=== PATIENT | male | born 1975 | race Caucasian/White ===

== ENCOUNTER 2019-02-09 20:44 | Emergency (ER) | payer MEDICAID ==
[~2019-02-09] VITALS: Ht 182.9 cm; Wt 87.7 kg
--- NOTE | 2019-02-09 20:57 | NUR ---
PT PRESENTED WITH C/O CHEST PAIN THAT RADIATES DOWN LEFT ARM, SOB AND SWEATING FOR 2 DAYS, ALSO C/O SEVERE HEADACHE AND LEFT EAR PAIN, DENIES N/V. MONITORS APPLIED, SIDERAILS UP X2, CALL LIGHT WITHIN REACH
--- NOTE | 2019-02-09 20:59 | NUR ---
PT TO XRAY
[2019-02-09] MEDS ORDERED: ACETAMINOPHEN 500 MG TABLET ONE (21:15)
[2019-02-09 21:16] LABS: BASOPHILS # (AUTO) 0.03 x10^3/uL (0-0.1); BASOPHILS % (AUTO) 0 % (0-1); EOSINOPHILS # (AUTO) 0.11 x10^3/uL (0-0.4); EOSINOPHILS % (AUTO) 1 % (1-7); LYMPHOCYTES # (AUTO) 2.14 x10^3/uL (1-3.4); LYMPHOCYTES % (AUTO) 23 % (22-44); MD NO; MEAN CORPUSCULAR HEMOGLOBIN 29.4 pg (27.5-34.5); MEAN CORPUSCULAR HGB CONC 34.1 g/dL (33.2-36.2); MEAN CORPUSCULAR VOLUME 86.1 fL (81-97); MEAN PLATELET VOLUME 8.1 fL (7.4-10.4); MONOCYTES % (AUTO) 5 % (2-9); NEUTROPHILS # (AUTO) 6.59 x10^3/uL (1.8-6.8); NEUTROPHILS % (AUTO) 70 % (42-75); PLATELET COUNT 312 x10^3/uL (130-400); RED BLOOD COUNT 5.66 x10^6/uL (4.38-5.82); RED CELL DISTRIBUTION WIDTH 13.8 % (9.4-14.8)
--- NOTE | 2019-02-09 21:18 | NUR ---
PT MEDICATED PER MAR
[2019-02-09 21:28] LABS: ALANINE AMINOTRANSFERASE 40 U/L (12-78); ANION GAP 5 mmol/L (5-15); CHLORIDE 103 mmol/L (98-107)
[2019-02-09] MEDS ORDERED: ACETAMINOPHEN 500 MG TABLET PO ONE (21:30)
[2019-02-09 21:33] LABS: ALKALINE PHOSPHATASE 112 U/L (45-117); BILIRUBIN,TOTAL 0.4 mg/dL (0.2-1.0); TOTAL PROTEIN 7.7 g/dL (6.4-8.2); TROPONIN I < 0.015 ng/mL (0.000-0.045)
[2019-02-09 22:18] VITALS: BP 130/93
== END 2019-02-09 22:22 | disposition home or self-care (01) ==
LOC: ED 21:18
DX: R07.89 Other chest pain (principal); J44.9 Chronic obstructive pulmonary disease, unspecified; F17.210 Nicotine dependence, cigarettes, uncomplicated
CPT/HCPCS: 36415; 71046; 80053; 83880; 84484; 85025; 85379; 93005; 99284

== ENCOUNTER 2020-07-31 11:45 | Inpatient (IN) | payer MEDICAID ==
[~2020-07-31] VITALS: Ht 182.9 cm; Wt 78.9 kg
[2020-07-31] MEDS ORDERED: ASPIRIN 81 MG TABLET CHEW ONE (12:27)
[2020-07-31] MEDS ORDERED: MAALOX/HYOSCYAMINE/LIDOCAINE 45 ML BTL ONE (12:27)
[2020-07-31] MEDS ORDERED: SODIUM CHLORIDE FLUSH 10ML SYR IVF ONE (12:30)
[2020-07-31] MEDS ORDERED: MAALOX/HYOSCYAMINE/LIDOCAINE 45 ML BTL PO ONE (12:30)
[2020-07-31] MEDS ORDERED: SODIUM CHLORIDE 0.9% 1,000ML IVBOLUS ONE (12:30)
[2020-07-31] MEDS ORDERED: ASPIRIN 81 MG TABLET CHEW PO ONE (12:30)
[2020-07-31 12:52] LABS: BASOPHILS % (AUTO) 0 % (0-1); EOSINOPHILS % (AUTO) 0 % (1-7); LYMPHOCYTES % (AUTO) 18 % (22-44); MEAN CORPUSCULAR HEMOGLOBIN 28.7 pg (27.5-34.5); MEAN CORPUSCULAR HGB CONC 32.4 g/dL (33.2-36.2); MEAN PLATELET VOLUME 9.6 fL (7.4-10.4); MONOCYTES % (AUTO) 4 % (2-9); NEUTROPHILS % (AUTO) 77 % (42-75); PLATELET COUNT 353 x10^3/uL (130-400); RED BLOOD COUNT 5.59 x10^6/uL (4.38-5.82); RED CELL DISTRIBUTION WIDTH 14.5 % (9.4-14.8)
[2020-07-31 13:01] LABS: ALANINE AMINOTRANSFERASE 116 U/L (12-78); ALBUMIN 3.3 g/dL (3.4-5.0); ANION GAP 4 mmol/L (5-15); CALCIUM 9.1 mg/dL (8.5-10.1); CHLORIDE 105 mmol/L (98-107)
[2020-07-31 13:06] LABS: ALKALINE PHOSPHATASE 187 U/L (45-117); BILIRUBIN,TOTAL 1.2 mg/dL (0.2-1.0); TOTAL PROTEIN 6.3 g/dL (6.4-8.2); TROPONIN I 0.026 ng/mL (0.000-0.045)
[2020-07-31 14:01] LABS: MD SCAN
[2020-07-31] MEDS ORDERED: FUROSEMIDE 40 MG TABLET PO SCH (14:34)
[2020-07-31] MEDS ORDERED: FUROSEMIDE 40 MG TABLET ONE (15:00)
--- NOTE | 2020-07-31 15:05 | NUR ---
Pt resting in bedm, pt vss, pt medicated per emar
--- NOTE | 2020-07-31 15:50 | NUR ---
pt resting in bedm, pt a/o x4 and in no distressm, vss. pt m,edicated per emar
[2020-07-31] MEDS ORDERED: hydrALAzine 20 MG/ML, 1ML IVPush PRN (16:30)
[2020-07-31] MEDS ORDERED: DOCUSATE 100 MG CAPSULE PO PRN (16:30)
[2020-07-31] MEDS ORDERED: ONDANSETRON ODT 4 MG PO PRN (16:30)
[2020-07-31] MEDS ORDERED: ONDANSETRON 2MG/ML, 2ML IVPush PRN (16:30)
[2020-07-31] MEDS ORDERED: CEFTRIAXONE PMX 2GM/50ML 50 ML IVPB SCH (16:30)
[2020-07-31] MEDS ORDERED: BISACODYL 10 MG SUPP PR PRN (16:30)
[2020-07-31] MEDS ORDERED: AZITHROMYCIN 500 MG in SODIUM CHLORIDE 0.9% 250 ML IV SCH (16:30)
[2020-07-31] MEDS ORDERED: PROMETHAZINE 25 MG/ML, 1ML IM PRN (16:30)
[2020-07-31] MEDS ORDERED: NITROGLYCERIN 0.4 MG BOTTLE (25 TABS) SL PRN (16:30)
[2020-07-31] MEDS ORDERED: POLYETHYLENE GLYCOL 17 GM PACKET PO PRN (16:30)
[2020-07-31] MEDS ORDERED: LABETALOL 5MG/ML, 20ML IVPush PRN (16:30)
[2020-07-31] MEDS ORDERED: OXYcodone IR 5MG TABLET PO PRN (16:30)
[2020-07-31] MEDS ORDERED: NITROGLYCERIN SINGLE TAB 0.4 MG SL ONE (16:31)
[2020-07-31] MEDS ORDERED: FUROSEMIDE 40 MG/4 ML ONE (16:31)
[2020-07-31] MEDS ORDERED: ONDANSETRON 2MG/ML, 2ML ONE (16:32)
[2020-07-31] MEDS ORDERED: CEFTRIAXONE PMX 2GM/50ML 50 ML ONE (16:32)
[2020-07-31] MEDS ORDERED: HEPARIN 5,000 UNITS/ML, 1ML ONE (16:32)
[2020-07-31] MEDS ORDERED: MORPHINE SULFATE 4 MG/ML, 1ML ONE ×2 (16:32→17:42)
[2020-07-31 16:33] LABS: FREE T4 (FREE THYROXINE) 1.06 ng/dL (0.76-1.46)
[2020-07-31] MEDS: HEPARIN 5,000 UNITS/ML, 1ML SQ SCH (16:41)
[2020-07-31] MEDS: FUROSEMIDE 20 MG/2 ML IV SCH (16:41)
[2020-07-31] MEDS: morphine SULFATE 10 MG/ML, 1ML IVPush PRN ×3 (16:42→18:02)
--- NOTE | 2020-07-31 16:45 | NUR ---
pt c/o 06/18 chest pain pt medicated per emar
--- NOTE | 2020-07-31 16:54 | NUR ---
PT CHEST PAIN WENT FROM 9/10 TO 5/10 WITH 1X NITRO AND 5/10 TO 0/10 WITH 3MG MS. PT CURRENTLY PAIN FREE
--- NOTE | 2020-07-31 17:04 | NUR ---
PT DENIED HOME MED TO RN
[2020-07-31] MEDS ORDERED: NICOTINE 14MG/24 HR PATCH.TD24 ONE (17:08)
[2020-07-31] MEDS: NICOTINE 14MG/24 HR PATCH.TD24 TD SCH (17:11)
--- NOTE | 2020-07-31 17:14 | NUR ---
NICOTIN PATCH PLACED ON PT L SHOULDER
--- NOTE | 2020-07-31 17:49 | NUR ---
pt in 07/18 abd pain after ultra sound. pt m,edicated per emar
--- NOTE | 2020-07-31 17:53 | NUR ---
PT PETER WANTED CALL WHEN PT GOES UP TO FLOOR AT [phone]
[2020-07-31 19:01] LABS: TROPONIN I 0.028 ng/mL (0.000-0.045)
[2020-07-31 20:01] VITALS: BP 116/83
[2020-07-31 22:59] LABS: TROPONIN I 0.023 ng/mL (0.000-0.045)
[2020-08-01 01:32] LABS: BASOPHILS % (AUTO) 0 % (0-1); EOSINOPHILS % (AUTO) 0 % (1-7); LYMPHOCYTES % (AUTO) 12 % (22-44); MEAN CORPUSCULAR HEMOGLOBIN 28.6 pg (27.5-34.5); MEAN CORPUSCULAR HGB CONC 32.2 g/dL (33.2-36.2); MEAN PLATELET VOLUME 9.9 fL (7.4-10.4); MONOCYTES % (AUTO) 5 % (2-9); NEUTROPHILS % (AUTO) 82 % (42-75); PLATELET COUNT 333 x10^3/uL (130-400); RED BLOOD COUNT 5.52 x10^6/uL (4.38-5.82); RED CELL DISTRIBUTION WIDTH 14.2 % (9.4-14.8)
[2020-08-01 01:33] LABS: ALANINE AMINOTRANSFERASE 90 U/L (12-78); ALBUMIN 2.8 g/dL (3.4-5.0); ANION GAP 6 mmol/L (5-15); CALCIUM 8.1 mg/dL (8.5-10.1); CHLORIDE 106 mmol/L (98-107); CHOLESTEROL, TOTAL 187 mg/dL (140-239); CREATININE 0.92 mg/dL (0.7-1.3)
[2020-08-01 01:35] LABS: ALKALINE PHOSPHATASE 151 U/L (45-117); BILIRUBIN,TOTAL 0.9 mg/dL (0.2-1.0); CHOL/HDL RATIO 5.8; HDL CHOL % 17 % (26-37); HDL CHOLESTEROL (DIRECT) 32 mg/dL (40-60); LDL CHOLESTEROL,CALCULATED 131 mg/dL (54-169); LDL/HDL RATIO 4.1 (0.5-3.0); TOTAL PROTEIN 5.7 g/dL (6.4-8.2); TRIGLYCERIDES 119 mg/dL (50-200); VLDL CHOLESTEROL 24 mg/dL (0-25)
[2020-08-01 01:38] LABS: TROPONIN I 0.021 ng/mL (0.000-0.045)
[2020-08-01 02:00] LABS: MD SCAN
[2020-08-01 02:19] VITALS: BP 137/98
[2020-08-01] MEDS: HEPARIN 5,000 UNITS/ML, 1ML SQ SCH ×2 (02:19→08:30)
[2020-08-01 07:08] VITALS: BP 133/91
[2020-08-01] MEDS: ASPIRIN 325 MG TABLET EC PO SCH (08:29)
[2020-08-01] MEDS: FUROSEMIDE 20 MG/2 ML IV SCH ×2 (08:30→18:24)
[2020-08-01] MEDS ORDERED: OMNIPAQUE 350 MG/ML, 75ML BOTTLE ONE (09:36)
[2020-08-01 14:20] VITALS: BP 120/86
[2020-08-01] MEDS: FLUTICASONE/VILANTEROL 100-25MCG/INH INH SCH (14:30)
[2020-08-01] MEDS ORDERED: HEPARIN 5,000 UNITS/ML, 1ML IV ONE (16:00)
[2020-08-01] MEDS ORDERED: HEPARIN 25,000 UNITS/250ML PMX 250 ML IV PRN (16:00)
[2020-08-01] MEDS: NICOTINE 14MG/24 HR PATCH.TD24 TD SCH (17:00)
[2020-08-01] MEDS: CARVEDILOL 3.125 MG TABLET PO SCH (18:24)
[2020-08-01 20:33] VITALS: BP 124/95
[2020-08-02] MEDS: HEPARIN 5,000 UNITS/ML, 1ML IV PRN ×2 (00:48→08:12)
[2020-08-02 00:59] VITALS: BP 121/91
[2020-08-02] MEDS: ASPIRIN 325 MG TABLET EC PO SCH (06:35)
[2020-08-02] MEDS: CARVEDILOL 3.125 MG TABLET PO SCH (06:35)
[2020-08-02 07:23] VITALS: BP 143/96
[2020-08-02] MEDS: FUROSEMIDE 20 MG/2 ML IV SCH (08:13)
[2020-08-02] MEDS: FLUTICASONE/VILANTEROL 100-25MCG/INH INH SCH (09:00)
[2020-08-02] MEDS ORDERED: LISINOPRIL 5 MG TABLET PO SCH (09:00)
[2020-08-02] MEDS ORDERED: SPIRONOLACTONE 25 MG TABLET PO SCH (09:00)
[2020-08-02 12:18] VITALS: BP 126/86
== END 2020-08-02 15:02 | disposition left against medical advice (07) | DRG 291 ==
LOC: ED 12:30 → EDIP 16:17 → 5SO 19:57
PROVIDERS: ADMIT Internal Medicine; ATTEND Internal Medicine
DX: I50.43 Acute on chronic combined systolic (congestive) and diastolic (congestive) heart failure (principal); J96.01 Acute respiratory failure with hypoxia; J15.9 Unspecified bacterial pneumonia; J91.8 Pleural effusion in other conditions classified elsewhere; J44.0 Chronic obstructive pulmonary disease with (acute) lower respiratory infection; F17.210 Nicotine dependence, cigarettes, uncomplicated; F12.90 Cannabis use, unspecified, uncomplicated; K76.1 Chronic passive congestion of liver; Z53.29 Procedure and treatment not carried out because of patient's decision for other reasons; I25.10 Atherosclerotic heart disease of native coronary artery without angina pectoris; Z71.6 Tobacco abuse counseling
CPT/HCPCS: 36415; 71045; 71260; 76700; 80053; 80061; 83036; 83605; 83690; 83735; 83880; 84439; 84443; 84484; 85025; 85520; 93005; 93306; 94640; 96374; 96375; 99285; G0378; J0456; J0696; J1644; J2405; Q9967; J1940; J2270; J7030; J7050

== ENCOUNTER 2020-08-06 08:00 | Inpatient (IN) | payer MEDICAID ==
[~2020-08-06] VITALS: Ht 182.9 cm; Wt 79.7 kg
[2020-08-06] MEDS ORDERED: MAALOX/HYOSCYAMINE/LIDOCAINE 45 ML BTL PO ONE (08:30)
[2020-08-06] MEDS ORDERED: FAMOTIDINE 20 MG/2 ML IVPush ONE (08:30)
[2020-08-06] MEDS ORDERED: SODIUM CHLORIDE FLUSH 10ML SYR IVF ONE (08:30)
[2020-08-06] MEDS ORDERED: ONDANSETRON 2MG/ML, 2ML IVPush ONE (08:30)
[2020-08-06] MEDS ORDERED: FAMOTIDINE 20 MG/2 ML ONE (08:36)
[2020-08-06] MEDS ORDERED: ONDANSETRON 2MG/ML, 2ML ONE (08:36)
[2020-08-06] MEDS ORDERED: MAALOX/HYOSCYAMINE/LIDOCAINE 45 ML BTL ONE (08:36)
[2020-08-06] MEDS ORDERED: SODIUM CHLORIDE 0.9% 1,000ML IVBOLUS ONE (09:00)
[2020-08-06] MEDS ORDERED: PIPERACILLIN/TAZO/PMX 3.375GM 50 ML IVPB ONE (09:00)
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
[2020-08-06 09:01] LABS: BASOPHILS % (AUTO) 1 % (0-1); EOSINOPHILS % (AUTO) 0 % (1-7); LYMPHOCYTES % (AUTO) 19 % (22-44); MEAN CORPUSCULAR HEMOGLOBIN 29.2 pg (27.5-34.5); MEAN CORPUSCULAR HGB CONC 32.8 g/dL (33.2-36.2); MEAN PLATELET VOLUME 8.8 fL (7.4-10.4); MONOCYTES % (AUTO) 5 % (2-9); NEUTROPHILS % (AUTO) 76 % (42-75); PLATELET COUNT 350 x10^3/uL (130-400); RED BLOOD COUNT 5.07 x10^6/uL (4.38-5.82); RED CELL DISTRIBUTION WIDTH 14.5 % (9.4-14.8)
[2020-08-06 09:06] LABS: ALANINE AMINOTRANSFERASE 192 U/L (12-78); ALBUMIN 3.5 g/dL (3.4-5.0); ANION GAP 3 mmol/L (5-15); CALCIUM 8.9 mg/dL (8.5-10.1); CHLORIDE 108 mmol/L (98-107); CREATININE 1.05 mg/dL (0.7-1.3); MD NO
[2020-08-06 09:10] LABS: ALKALINE PHOSPHATASE 176 U/L (45-117); BILIRUBIN,TOTAL 0.8 mg/dL (0.2-1.0); TROPONIN I 0.132 ng/mL (0.000-0.045)
[2020-08-06] MEDS ORDERED: PIPERACILLIN/TAZO/PMX 3.375GM 50 ML ONE (09:12)
--- NOTE | 2020-08-06 09:16 | NUR ---
BLOOD CULTURES DRAWN PRIOR TO ADMIN OF ABX
[2020-08-06] MEDS ORDERED: ASPIRIN 81 MG TABLET CHEW ONE (09:20)
[2020-08-06] MEDS ORDERED: FUROSEMIDE 20 MG/2 ML ONE (09:20)
--- NOTE | 2020-08-06 09:25 | NUR ---
PT TO CT
[2020-08-06] MEDS ORDERED: ASPIRIN 81 MG TABLET CHEW PO ONE (09:30)
[2020-08-06] MEDS ORDERED: FUROSEMIDE 40 MG/4 ML IV ONE (09:30)
[2020-08-06] MEDS ORDERED: OMNIPAQUE 350 MG/ML, 100ML BOTTLE ONE (09:48)
--- NOTE | 2020-08-06 11:07 | NUR ---
pt voided 1200 ml, clear yellow. poc to be admitted
[2020-08-06] MEDS ORDERED: ENALAPRILAT 1.25 MG/ML, 2ML IVPush PRN (11:30)
[2020-08-06] MEDS ORDERED: ONDANSETRON 2MG/ML, 2ML IVPush PRN (11:30)
[2020-08-06] MEDS ORDERED: ACETAMINOPHEN 325 MG TABLET PO PRN (11:30)
[2020-08-06] MEDS ORDERED: ONDANSETRON ODT 4 MG PO PRN (11:30)
--- NOTE | 2020-08-06 11:32 | NUR ---
GIVEN WATER. CALL LIGHT IN REACH. PT AWARE OF POC
--- NOTE | 2020-08-06 11:49 | NUR ---
REPORT TO LAKESHA
[2020-08-06 12:12] VITALS: BP 122/82
[2020-08-06] MEDS: CEFTRIAXONE PMX 2GM/50ML 50 ML IVPB SCH (15:17)
[2020-08-06] MEDS: APIXABAN 5 MG TABLET PO SCH ×2 (15:18→21:56)
[2020-08-06 21:53] VITALS: BP 118/86
[2020-08-06] MEDS: METOPROLOL TARTRATE 25 MG TAB PO SCH (21:55)
[2020-08-06] MEDS: LACTULOSE 10 GM/15 ML UDC PO SCH (21:56)
[2020-08-07 00:32] LABS: TROPONIN I 0.123 ng/mL (0.000-0.045)
[2020-08-07 01:12] VITALS: BP 121/92
[2020-08-07 04:46] LABS: BASOPHILS % (AUTO) 1 % (0-1); EOSINOPHILS % (AUTO) 1 % (1-7); LYMPHOCYTES % (AUTO) 26 % (22-44); MEAN CORPUSCULAR HEMOGLOBIN 28.6 pg (27.5-34.5); MEAN CORPUSCULAR HGB CONC 32.2 g/dL (33.2-36.2); MEAN PLATELET VOLUME 8.9 fL (7.4-10.4); MONOCYTES % (AUTO) 7 % (2-9); NEUTROPHILS % (AUTO) 66 % (42-75); PLATELET COUNT 384 x10^3/uL (130-400); RED BLOOD COUNT 5.41 x10^6/uL (4.38-5.82); RED CELL DISTRIBUTION WIDTH 14.4 % (9.4-14.8)
[2020-08-07 04:54] LABS: ANION GAP 4 mmol/L (5-15); CALCIUM 8.6 mg/dL (8.5-10.1); CHLORIDE 105 mmol/L (98-107); CREATININE 1.05 mg/dL (0.7-1.3)
[2020-08-07] MEDS: METOPROLOL TARTRATE 25 MG TAB PO SCH ×2 (05:11→18:08)
[2020-08-07 05:55] LABS: MD SCAN
[2020-08-07 08:00] VITALS: BP 124/91
[2020-08-07] MEDS: LACTULOSE 10 GM/15 ML UDC PO SCH ×2 (09:00→20:50)
[2020-08-07] MEDS: FUROSEMIDE 20 MG/2 ML IV SCH ×2 (09:07→18:08)
[2020-08-07] MEDS: APIXABAN 5 MG TABLET PO SCH ×2 (09:07→20:54)
[2020-08-07] MEDS: LISINOPRIL 5 MG TABLET PO SCH (09:07)
[2020-08-07] MEDS: CEFTRIAXONE PMX 2GM/50ML 50 ML IVPB SCH (13:49)
[2020-08-07 16:00] VITALS: BP 130/95
[2020-08-07] MEDS ORDERED: LORazepam 0.5MG TABLET ONE (20:49)
[2020-08-07] MEDS: LORazepam 0.5MG TABLET PO PRN (20:54)
[2020-08-07 20:55] VITALS: BP 127/91
[2020-08-08 03:59] LABS: BASOPHILS % (AUTO) 1 % (0-1); EOSINOPHILS % (AUTO) 1 % (1-7); LYMPHOCYTES % (AUTO) 27 % (22-44); MEAN CORPUSCULAR HEMOGLOBIN 29.3 pg (27.5-34.5); MEAN CORPUSCULAR HGB CONC 33.4 g/dL (33.2-36.2); MEAN PLATELET VOLUME 9.1 fL (7.4-10.4); MONOCYTES % (AUTO) 6 % (2-9); NEUTROPHILS % (AUTO) 65 % (42-75); PLATELET COUNT 379 x10^3/uL (130-400); RED BLOOD COUNT 5.62 x10^6/uL (4.38-5.82); RED CELL DISTRIBUTION WIDTH 14.5 % (9.4-14.8)
[2020-08-08 04:00] VITALS: BP 131/85
[2020-08-08 04:02] LABS: ANION GAP 7 mmol/L (5-15); CALCIUM 8.9 mg/dL (8.5-10.1); CHLORIDE 102 mmol/L (98-107); CREATININE 0.95 mg/dL (0.7-1.3)
[2020-08-08] MEDS: LORazepam 0.5MG TABLET PO PRN (04:07)
[2020-08-08 05:50] LABS: MD SCAN
[2020-08-08] MEDS: METOPROLOL TARTRATE 25 MG TAB PO SCH (06:10)
[2020-08-08] MEDS: LACTULOSE 10 GM/15 ML UDC PO SCH (07:42)
[2020-08-08 08:00] VITALS: BP 121/86
[2020-08-08] MEDS: APIXABAN 5 MG TABLET PO SCH (09:14)
[2020-08-08] MEDS: LISINOPRIL 5 MG TABLET PO SCH (09:14)
[2020-08-08] MEDS: FUROSEMIDE 20 MG/2 ML IV SCH (09:14)
[2020-08-08 09:52] LABS: ANION GAP 7 mmol/L (5-15); CALCIUM 9.2 mg/dL (8.5-10.1); CHLORIDE 102 mmol/L (98-107)
[2020-08-08 10:00] LABS: CREATININE 1.21 mg/dL (0.7-1.3)
[2020-08-08] MEDS ORDERED: METO25TA35 PO (10:28)
[2020-08-08] MEDS ORDERED: FURO-93 PO (10:28)
[2020-08-08] MEDS ORDERED: APIX5TAB PO (10:28)
[2020-08-13] MEDS ORDERED: APIXABAN 5 MG TABLET PO SCH (09:00)
== END 2020-08-08 11:23 | disposition home or self-care (01) | DRG 291 ==
LOC: ED 08:19 → SUATTDRO 10:59 → 5SO 12:19 → ICU 18:39
PROVIDERS: ADMIT Hospitalist; ATTEND Internal Medicine
DX: I11.0 Hypertensive heart disease with heart failure (principal); J18.9 Pneumonia, unspecified organism; J44.0 Chronic obstructive pulmonary disease with (acute) lower respiratory infection; F15.20 Other stimulant dependence, uncomplicated; E87.5 Hyperkalemia; I50.23 Acute on chronic systolic (congestive) heart failure; F17.210 Nicotine dependence, cigarettes, uncomplicated; F41.0 Panic disorder [episodic paroxysmal anxiety]; I34.0 Nonrheumatic mitral (valve) insufficiency; I51.3 Intracardiac thrombosis, not elsewhere classified; R19.7 Diarrhea, unspecified; K76.1 Chronic passive congestion of liver; Z20.828 Contact with and (suspected) exposure to other viral communicable diseases; Z59.0 Homelessness; Z91.19 Patient's noncompliance with other medical treatment and regimen
CPT/HCPCS: 36415; 71045; 74177; 80048; 80053; 83605; 83615; 83690; 83880; 84132; 84145; 84484; 85025; 85379; 86140; 87040; 87081; 87635; 93005; 96361; 96374; 96375; 99285; G0378; J0696; J1940; J2405; J2543; Q9967; J7030

== ENCOUNTER 2020-11-16 03:25 | Emergency (ER) | payer MEDICAID ==
[~2020-11-16] VITALS: Ht 185.4 cm; Wt 98.0 kg
[~2020-11-16 03:25] MED LIST: APIX5TAB PO; FURO-93 PO; METO25TA35 PO
[2020-11-16 03:51] LABS: BASOPHILS % (AUTO) 1 % (0-1); EOSINOPHILS % (AUTO) 1 % (1-7); LYMPHOCYTES % (AUTO) 22 % (22-44); MEAN CORPUSCULAR HEMOGLOBIN 28.2 pg (27.5-34.5); MEAN CORPUSCULAR HGB CONC 32.6 g/dL (33.2-36.2); MEAN PLATELET VOLUME 8.2 fL (7.4-10.4); MONOCYTES % (AUTO) 7 % (2-9); NEUTROPHILS % (AUTO) 70 % (42-75); PLATELET COUNT 399 x10^3/uL (130-400); RED BLOOD COUNT 4.76 x10^6/uL (4.38-5.82); RED CELL DISTRIBUTION WIDTH 15.8 % (9.4-14.8)
[2020-11-16 04:00] LABS: ALBUMIN 3.1 g/dL (3.4-5.0); ANION GAP 5 mmol/L (5-15); CALCIUM 8.4 mg/dL (8.5-10.1); CHLORIDE 104 mmol/L (98-107)
[2020-11-16] MEDS ORDERED: SODIUM CHLORIDE FLUSH 10ML SYR IVF ONE (04:00)
[2020-11-16] MEDS ORDERED: SODIUM CHLORIDE 0.9% 1,000ML IVBOLUS ONE (04:00)
--- NOTE | 2020-11-16 04:02 | NUR ---
Pt states having increased swelling in scrotum and LE. Pt states being constipated today. Pt c/o abd pain. Pt on monitor, IV placed. Will monitor.
[2020-11-16 04:03] LABS: MD NO
[2020-11-16 04:09] LABS: ALANINE AMINOTRANSFERASE 421 U/L (12-78); ALKALINE PHOSPHATASE 266 U/L (45-117); BILIRUBIN,TOTAL 0.7 mg/dL (0.2-1.0); CREATININE 1.24 mg/dL (0.7-1.3); TOTAL PROTEIN 7.7 g/dL (6.4-8.2)
--- NOTE | 2020-11-16 04:52 | NUR ---
PO fluids recruitment and outreach assistant per physician. Pt A&O, states having pain. Physician aware.
[2020-11-16] MEDS ORDERED: ONDANSETRON ODT 4 MG PO ONE (05:00)
[2020-11-16] MEDS ORDERED: DICYCLOMINE 20 MG TABLET ONE (05:00)
[2020-11-16] MEDS ORDERED: ONDANSETRON ODT 4 MG ONE (05:00)
[2020-11-16] MEDS ORDERED: DICYCLOMINE 20 MG TABLET PO ONE (05:00)
[2020-11-16 06:06] VITALS: BP 114/65
--- NOTE | 2020-11-16 06:08 | NUR ---
Pt states feeling much better. Pt iv dc'd intact. Pt home with written and verbal instructions and state understanding. Pt rx reviewed with patient and states understanding. Pt ambulatory out of ED and states he is walking home.
== END 2020-11-16 06:11 | disposition home or self-care (01) ==
LOC: ED 06:06
DX: R10.84 Generalized abdominal pain (principal); K59.00 Constipation, unspecified; F11.10 Opioid abuse, uncomplicated; F15.129 Other stimulant abuse with intoxication, unspecified; R11.0 Nausea; J44.9 Chronic obstructive pulmonary disease, unspecified; I11.0 Hypertensive heart disease with heart failure; I50.9 Heart failure, unspecified; F17.200 Nicotine dependence, unspecified, uncomplicated; Z72.9 Problem related to lifestyle, unspecified
CPT/HCPCS: 36415; 80053; 83690; 85025; 99283; J7030; Q0162

== ENCOUNTER 2020-11-29 10:31 | Inpatient (IN) | payer MEDICAID ==
[~2020-11-29] VITALS: Ht 185.4 cm; Wt 93.1 kg
[2020-11-29 10:54] LABS: BASOPHILS % (AUTO) 0 % (0-1); EOSINOPHILS % (AUTO) 0 % (1-7); LYMPHOCYTES % (AUTO) 17 % (22-44); MEAN CORPUSCULAR HEMOGLOBIN 28.1 pg (27.5-34.5); MEAN CORPUSCULAR HGB CONC 33.1 g/dL (33.2-36.2); MEAN PLATELET VOLUME 8.8 fL (7.4-10.4); MONOCYTES % (AUTO) 6 % (2-9); NEUTROPHILS % (AUTO) 78 % (42-75); PLATELET COUNT 405 x10^3/uL (130-400); RED CELL DISTRIBUTION WIDTH 15.8 % (9.4-14.8)
[2020-11-29] MEDS ORDERED: SODIUM CHLORIDE FLUSH 10ML SYR IVF ONE (11:00)
[2020-11-29] MEDS ORDERED: SODIUM CHLORIDE 0.9% 1,000 ML IV ONE (11:00)
[2020-11-29] MEDS ORDERED: SODIUM CHLORIDE 0.9% 1,000ML IVBOLUS ONE (11:00)
[2020-11-29] MEDS ORDERED: HYDROmorphone 2 MG/ML, 1ML IVPush PRN (11:00)
[2020-11-29 11:04] LABS: ALBUMIN 3.2 g/dL (3.4-5.0); ANION GAP 13 mmol/L (5-15); CALCIUM 9.8 mg/dL (8.5-10.1); CHLORIDE 92 mmol/L (98-107); CREATININE 1.89 mg/dL (0.7-1.3)
[2020-11-29 11:14] LABS: ALANINE AMINOTRANSFERASE 1271 U/L (12-78); ALKALINE PHOSPHATASE 241 U/L (45-117); BILIRUBIN,TOTAL 3.5 mg/dL (0.2-1.0); TOTAL PROTEIN 7.8 g/dL (6.4-8.2)
--- NOTE | 2020-11-29 11:15 | NUR ---
pt to ct scan
[2020-11-29 11:23] LABS: MD SCAN
[2020-11-29] MEDS ORDERED: INSULIN REGULAR 100 UNITS/ML, 3ML VIAL IVPush ONE (11:30)
[2020-11-29] MEDS ORDERED: DEXTROSE 50%, 50ML SYRINGE IVPush ONE (11:30)
[2020-11-29] MEDS ORDERED: CALCIUM GLUCONATE 4.6 MEQ/10 ML IVPush ONE (11:30)
--- NOTE | 2020-11-29 11:32 | NUR ---
returned from ct scan
[2020-11-29] MEDS ORDERED: HYDROmorphone 2 MG/ML, 1ML ONE (11:42)
[2020-11-29] MEDS ORDERED: CALCIUM GLUCONATE 4.6 MEQ/10 ML ONE (11:43)
[2020-11-29] MEDS ORDERED: DEXTROSE 50%, 50ML SYRINGE ONE (11:44)
--- NOTE | 2020-11-29 12:37 | NUR ---
pt sleeping. easily aroused
[2020-11-29 13:27] LABS: SALICYLATE LEVEL < 1.7 mg/dL (2.8-20.0)
[2020-11-29 13:29] LABS: CREATINE KINASE, TOTAL 309 U/L (39-308)
[2020-11-29] MEDS ORDERED: SODIUM CHLORIDE FLUSH 10ML SYR IVF PRN (13:30)
--- NOTE | 2020-11-29 13:35 | NUR ---
report given to lis norwood
[2020-11-29 14:00] VITALS: BP 145/115
[2020-11-29 14:06] VITALS: BP 145/114
[2020-11-29] MEDS ORDERED: ACETAMINOPHEN 325 MG TABLET PO PRN (14:30)
[2020-11-29] MEDS ORDERED: ONDANSETRON 2MG/ML, 2ML IVPush PRN (14:30)
[2020-11-29] MEDS ORDERED: POLYETHYLENE GLYCOL 17 GM PACKET PO PRN (14:30)
[2020-11-29] MEDS ORDERED: SODIUM CHLORIDE 0.9% 1,000 ML IV SCH (14:30)
[2020-11-29] MEDS ORDERED: PHARMACY MAY ADJ FOR RENAL FX MC PRN (14:30)
[2020-11-29] MEDS ORDERED: BISACODYL 10 MG SUPP PR PRN (14:30)
[2020-11-29] MEDS ORDERED: DOCUSATE 100 MG CAPSULE PO PRN (14:30)
[2020-11-29 15:14] LABS: HCT (SEDRATE) 43.3 % (39.2-51.8)
[2020-11-29 15:26] LABS: TROPONIN I 0.059 ng/mL (0.000-0.045)
[2020-11-29] MEDS: CEFTRIAXONE PMX 1GM/50ML 50 ML IV SCH (15:31)
[2020-11-29 15:36] LABS: INTERNATIONAL NORMALIZED RATIO 1.96 (0.93-1.1); PROTHROMBIN TIME 20.7 Seconds (9.6-11.5)
[2020-11-29] MEDS: METRONIDAZOLE PMX 500MG/100ML 100 ML IV SCH (16:45)
[2020-11-29] MEDS ORDERED: HEPARIN 5,000 UNITS/ML, 1ML IV ONE (17:00)
[2020-11-29 17:25] LABS: % IRON SATURATION 5 % (20-55); IRON LEVEL 28 mcg/dL (65-175); TOTAL IRON BINDING CAPACITY 545 mcg/dL (250-450)
[2020-11-29] MEDS: SODIUM ZIRCONIUM CYCLOSILICATE 5 GM PO SCH ×2 (18:03→20:55)
[2020-11-29] MEDS: HEPARIN 25,000 UNITS/250ML PMX 250 ML IV PRN (18:10)
[2020-11-29 20:24] VITALS: BP 142/108
[2020-11-29] MEDS ORDERED: APIXABAN 5 MG TABLET PO SCH (21:00)
[2020-11-29 21:05] LABS: TROPONIN I 0.047 ng/mL (0.000-0.045)
[2020-11-29 23:11] LABS: MICROSCOPIC AUTO
[2020-11-29 23:22] LABS: AMPHETAMINE SCREEN, URINE Positive (Negative); BARBITURATE SCREEN, URINE Negative (Negative); BENZODIAZEPINE SCREEN, URINE Negative (Negative); CANNABINOID SCREEN, URINE Positive (Negative); CHLORIDE,URINE RANDOM 12 mmol/L; COCAINE SCREEN, URINE Negative (Negative); METHADONE SCREEN, URINE Negative (Negative); OPIATE SCREEN, URINE Positive (Negative); POTASSIUM,URINE RANDOM 88 mmol/L
[2020-11-29 23:27] LABS: SODIUM,URINE RANDOM < 5 mmol/L
[2020-11-30] MEDS: morphine SULFATE 10 MG/ML, 1ML IVPush PRN ×2 (00:11→12:48)
[2020-11-30] MEDS: METRONIDAZOLE PMX 500MG/100ML 100 ML IV SCH ×3 (01:29→17:42)
[2020-11-30 01:40] VITALS: BP 147/105
[2020-11-30 06:38] LABS: MEAN CORPUSCULAR HEMOGLOBIN 27.7 pg (27.5-34.5); MEAN CORPUSCULAR HGB CONC 32.7 g/dL (33.2-36.2); MEAN PLATELET VOLUME 8.6 fL (7.4-10.4); PLATELET COUNT 348 x10^3/uL (130-400); RED CELL DISTRIBUTION WIDTH 16.1 % (9.4-14.8)
[2020-11-30 06:48] LABS: INTERNATIONAL NORMALIZED RATIO 1.62 (0.93-1.1); PROTHROMBIN TIME 17.2 Seconds (9.6-11.5)
[2020-11-30 06:49] LABS: ALBUMIN 2.8 g/dL (3.4-5.0); ANION GAP 7 mmol/L (5-15); CALCIUM 8.6 mg/dL (8.5-10.1); CHLORIDE 97 mmol/L (98-107); CREATININE 1.22 mg/dL (0.7-1.3)
[2020-11-30 07:00] LABS: ALANINE AMINOTRANSFERASE 1169 U/L (12-78); ALKALINE PHOSPHATASE 195 U/L (45-117); BILIRUBIN,TOTAL 1.6 mg/dL (0.2-1.0); TOTAL PROTEIN 6.7 g/dL (6.4-8.2)
[2020-11-30 07:39] VITALS: BP 132/92
[2020-11-30 07:42] LABS: MD YES
[2020-11-30 07:57] LABS: ANISOCYTOSIS 1+; LYMPH#(MANUAL) 1.62 x10^3/uL (1-3.4); LYMPHS% (MANUAL) 9 % (22-44); MONOS#(MANUAL) 0.72 x10^3/uL (0.3-2.7); MONOS% (MANUAL) 4 % (2-9); SEG#(MANUAL) 15.66 x10^3/uL (1.8-6.8); SEGS% (MANUAL) 87 % (42-75)
[2020-11-30 07:58] LABS: <PLATELET ESTIMATE> ADEQUATE; LARGE PLATELETS 1+
[2020-11-30] MEDS: SODIUM ZIRCONIUM CYCLOSILICATE 5 GM PO SCH (09:39)
[2020-11-30] MEDS: SODIUM CHLORIDE 0.9% 1,000 ML IV SCH ×2 (09:40→20:47)
[2020-11-30] MEDS: HEPARIN 5,000 UNITS/ML, 1ML IV PRN ×2 (09:40→18:45)
[2020-11-30] MEDS ORDERED: CALCIUM CARBONATE 500 MG TAB.CHEW PO PRN (11:00)
[2020-11-30 12:09] VITALS: BP 142/97
[2020-11-30] MEDS ORDERED: PROMETHAZINE 25 MG/ML, 1ML IM PRN (13:00)
[2020-11-30] MEDS: HYDROcodone/APAP 5/325 TABLET PO PRN (15:35)
[2020-11-30] MEDS: CEFTRIAXONE PMX 1GM/50ML 50 ML IV SCH (15:36)
[2020-11-30 19:01] VITALS: BP 127/81
[2020-12-01 00:10] VITALS: BP 143/104
[2020-12-01] MEDS: METRONIDAZOLE PMX 500MG/100ML 100 ML IV SCH ×3 (01:36→17:54)
[2020-12-01 02:41] LABS: BASOPHILS % (AUTO) 0 % (0-1); EOSINOPHILS % (AUTO) 0 % (1-7); LYMPHOCYTES % (AUTO) 19 % (22-44); MEAN CORPUSCULAR HEMOGLOBIN 27.5 pg (27.5-34.5); MEAN CORPUSCULAR HGB CONC 32.8 g/dL (33.2-36.2); MEAN PLATELET VOLUME 8.4 fL (7.4-10.4); MONOCYTES % (AUTO) 8 % (2-9); NEUTROPHILS % (AUTO) 73 % (42-75); PLATELET COUNT 309 x10^3/uL (130-400); RED BLOOD COUNT 4.87 x10^6/uL (4.38-5.82); RED CELL DISTRIBUTION WIDTH 16.5 % (9.4-14.8)
[2020-12-01 02:44] LABS: MD NO
[2020-12-01 02:52] LABS: ALANINE AMINOTRANSFERASE 868 U/L (12-78); ALBUMIN 2.7 g/dL (3.4-5.0); ANION GAP 7 mmol/L (5-15); CALCIUM 7.9 mg/dL (8.5-10.1); CHLORIDE 100 mmol/L (98-107)
[2020-12-01] MEDS: HYDROcodone/APAP 5/325 TABLET PO PRN ×2 (03:13→21:40)
[2020-12-01 03:19] LABS: ALKALINE PHOSPHATASE 191 U/L (45-117); BILIRUBIN,TOTAL 1.5 mg/dL (0.2-1.0); TOTAL PROTEIN 6.8 g/dL (6.4-8.2)
[2020-12-01] MEDS: HEPARIN 25,000 UNITS/250ML PMX 250 ML IV PRN (07:18)
[2020-12-01] MEDS ORDERED: MAGNESIUM SULFATE PMX 4GM/100M 100 ML IVPB ONE (07:30)
[2020-12-01 08:11] VITALS: BP 150/107
[2020-12-01] MEDS: METOPROLOL TARTRATE 25 MG TAB PO SCH ×2 (08:52→17:53)
[2020-12-01 13:00] VITALS: BP 126/102
[2020-12-01] MEDS: CEFTRIAXONE PMX 1GM/50ML 50 ML IV SCH (14:45)
[2020-12-01 19:10] VITALS: BP 142/107
[2020-12-02] MEDS: morphine SULFATE 10 MG/ML, 1ML IVPush PRN (01:01)
[2020-12-02] MEDS: METRONIDAZOLE PMX 500MG/100ML 100 ML IV SCH ×2 (01:03→08:48)
[2020-12-02] MEDS: METOPROLOL TARTRATE 25 MG TAB PO SCH (06:00)
[2020-12-02 08:30] LABS: BASOPHILS % (AUTO) 1 % (0-1); EOSINOPHILS % (AUTO) 1 % (1-7); LYMPHOCYTES % (AUTO) 24 % (22-44); MEAN CORPUSCULAR HEMOGLOBIN 27.3 pg (27.5-34.5); MEAN CORPUSCULAR HGB CONC 32.3 g/dL (33.2-36.2); MEAN PLATELET VOLUME 8.7 fL (7.4-10.4); MONOCYTES % (AUTO) 9 % (2-9); NEUTROPHILS % (AUTO) 66 % (42-75); PLATELET COUNT 299 x10^3/uL (130-400); RED BLOOD COUNT 5.08 x10^6/uL (4.38-5.82); RED CELL DISTRIBUTION WIDTH 16.2 % (9.4-14.8)
[2020-12-02 08:31] LABS: MD NO
[2020-12-02 08:41] LABS: ALBUMIN 2.8 g/dL (3.4-5.0); ANION GAP 6 mmol/L (5-15); CHLORIDE 101 mmol/L (98-107)
[2020-12-02 08:43] LABS: ALANINE AMINOTRANSFERASE 788 U/L (12-78); ALKALINE PHOSPHATASE 183 U/L (45-117); BILIRUBIN,TOTAL 1.5 mg/dL (0.2-1.0); TOTAL PROTEIN 6.8 g/dL (6.4-8.2)
[2020-12-02 08:45] VITALS: BP 136/65
== END 2020-12-02 10:20 | disposition home or self-care (01) | DRG 871 ==
LOC: ED 11:14 → EDIP 13:10 → 4WST 13:57 → DCLOUNGE 12-02 10:15
PROVIDERS: ADMIT Internal Medicine; ATTEND Hospitalist
DX: A41.9 Sepsis, unspecified organism (principal); K72.00 Acute and subacute hepatic failure without coma; N17.0 Acute kidney failure with tubular necrosis; E87.1 Hypo-osmolality and hyponatremia; R18.8 Other ascites; I31.3 Pericardial effusion (noninflammatory); I50.22 Chronic systolic (congestive) heart failure; J98.11 Atelectasis; R65.10 Systemic inflammatory response syndrome (SIRS) of non-infectious origin without acute organ dysfunction; D72.829 Elevated white blood cell count, unspecified; E86.1 Hypovolemia; E87.5 Hyperkalemia; F12.90 Cannabis use, unspecified, uncomplicated; F15.90 Other stimulant use, unspecified, uncomplicated; F17.200 Nicotine dependence, unspecified, uncomplicated; I11.0 Hypertensive heart disease with heart failure; I27.20 Pulmonary hypertension, unspecified; I34.0 Nonrheumatic mitral (valve) insufficiency; I51.3 Intracardiac thrombosis, not elsewhere classified; J44.9 Chronic obstructive pulmonary disease, unspecified; K59.00 Constipation, unspecified; D47.3 Essential (hemorrhagic) thrombocythemia; Z20.822 Contact with and (suspected) exposure to COVID-19; K76.1 Chronic passive congestion of liver; Z59.0 Homelessness; Z79.01 Long term (current) use of anticoagulants; Z79.4 Long term (current) use of insulin; Z91.14 Patient's other noncompliance with medication regimen; Z91.19 Patient's noncompliance with other medical treatment and regimen; Z79.899 Other long term (current) drug therapy; Z79.891 Long term (current) use of opiate analgesic; Z87.01 Personal history of pneumonia (recurrent)
CPT/HCPCS: 36415; 71045; 74176; 76705; 80053; 80074; 80299; 80307; 80329; 81001; 82140; 82436; 82550; 82607; 83540; 83550; 83690; 83735; 83880; 83930; 83935; 84100; 84132; 84133; 84145; 84300; 84443; 84484; 85025; 85520; 85610; 85651; 87040; 93306; 96374; 96375; 99285; G0378; J0696; J1170; J1644; J2405; Q9957; C8924; G0480; J0610; J2270; J3475; J7030

== ENCOUNTER 2020-12-07 10:11 | Inpatient (IN) | payer MEDICAID ==
[~2020-12-07] VITALS: Ht 182.9 cm; Wt 93.6 kg
[2020-12-07] MEDS ORDERED: FUROSEMIDE 40 MG/4 ML ONE ×2 (10:59→13:01)
[2020-12-07] MEDS ORDERED: ASPIRIN 81 MG TABLET CHEW ONE (10:59)
[2020-12-07] MEDS ORDERED: SODIUM CHLORIDE FLUSH 10ML SYR IVF ONE (11:00)
[2020-12-07] MEDS ORDERED: ASPIRIN 81 MG TABLET CHEW PO ONE (11:00)
[2020-12-07] MEDS ORDERED: FUROSEMIDE 40 MG/4 ML IV ONE ×2 (11:00→13:00)
--- NOTE | 2020-12-07 11:08 | NUR ---
URINAL PROVIDED FOR PT. LAB AT BEDSIDE. PT MEDICATED PER DEC.
[2020-12-07 11:28] LABS: BASOPHILS % (AUTO) 1 % (0-1); EOSINOPHILS % (AUTO) 0 % (1-7); LYMPHOCYTES % (AUTO) 18 % (22-44); MEAN CORPUSCULAR HEMOGLOBIN 27.2 pg (27.5-34.5); MEAN CORPUSCULAR HGB CONC 32.3 g/dL (33.2-36.2); MEAN PLATELET VOLUME 8.4 fL (7.4-10.4); MONOCYTES % (AUTO) 6 % (2-9); NEUTROPHILS % (AUTO) 75 % (42-75); PLATELET COUNT 279 x10^3/uL (130-400); RED BLOOD COUNT 4.54 x10^6/uL (4.38-5.82); RED CELL DISTRIBUTION WIDTH 16.3 % (9.4-14.8)
[2020-12-07 11:34] LABS: MD NO
[2020-12-07 11:36] LABS: ALANINE AMINOTRANSFERASE 264 U/L (12-78); ANION GAP 9 mmol/L (5-15); CALCIUM 8.2 mg/dL (8.5-10.1); CHLORIDE 102 mmol/L (98-107)
[2020-12-07 11:40] LABS: ALKALINE PHOSPHATASE 165 U/L (45-117); BILIRUBIN,TOTAL 1.3 mg/dL (0.2-1.0); CREATININE 1.05 mg/dL (0.7-1.3); TROPONIN I 0.052 ng/mL (0.000-0.045)
[2020-12-07] MEDS ORDERED: CEFTRIAXONE PMX 1GM/50ML 50 ML ONE (12:14)
[2020-12-07] MEDS ORDERED: CEFTRIAXONE PMX 1GM/50ML 50 ML IVPB ONE (12:30)
--- NOTE | 2020-12-07 12:45 | NUR ---
CALLED TO GIVE RPT. RN STATED SHE WOULD CALL BACK.
[2020-12-07 13:05] LABS: AMPHETAMINE SCREEN, URINE Positive (Negative); BARBITURATE SCREEN, URINE Negative (Negative); BENZODIAZEPINE SCREEN, URINE Negative (Negative); CANNABINOID SCREEN, URINE Positive (Negative); COCAINE SCREEN, URINE Negative (Negative); METHADONE SCREEN, URINE Negative (Negative)
[2020-12-07 13:06] LABS: OPIATE SCREEN, URINE Negative (Negative)
[2020-12-07 13:23] VITALS: BP 147/93
[2020-12-07] MEDS ORDERED: BISACODYL 10 MG SUPP PR PRN (14:00)
[2020-12-07] MEDS ORDERED: ONDANSETRON ODT 4 MG PO PRN (14:00)
[2020-12-07] MEDS ORDERED: ACETAMINOPHEN 325 MG TABLET PO PRN (14:00)
[2020-12-07] MEDS: ENOXAPARIN 40 MG/0.4 ML SQ SCH (14:00)
[2020-12-07] MEDS ORDERED: POLYETHYLENE GLYCOL 17 GM PACKET PO PRN (14:00)
[2020-12-07] MEDS ORDERED: DOCUSATE 100 MG CAPSULE PO PRN (14:00)
[2020-12-07] MEDS ORDERED: ONDANSETRON 2MG/ML, 2ML IVPush PRN (14:00)
[2020-12-07 15:43] LABS: TROPONIN I 0.045 ng/mL (0.000-0.045)
[2020-12-07 20:37] VITALS: BP 97/59
[2020-12-08 00:16] VITALS: BP 118/82
[2020-12-08 05:57] LABS: BASOPHILS % (AUTO) 0 % (0-1); EOSINOPHILS % (AUTO) 1 % (1-7); LYMPHOCYTES % (AUTO) 22 % (22-44); MEAN CORPUSCULAR HEMOGLOBIN 27.1 pg (27.5-34.5); MEAN CORPUSCULAR HGB CONC 32.7 g/dL (33.2-36.2); MEAN PLATELET VOLUME 8.5 fL (7.4-10.4); MONOCYTES % (AUTO) 7 % (2-9); NEUTROPHILS % (AUTO) 69 % (42-75); PLATELET COUNT 304 x10^3/uL (130-400); RED BLOOD COUNT 4.63 x10^6/uL (4.38-5.82); RED CELL DISTRIBUTION WIDTH 16.4 % (9.4-14.8)
[2020-12-08 06:02] LABS: MD NO
[2020-12-08 06:05] LABS: ALBUMIN 2.6 g/dL (3.4-5.0); ANION GAP 6 mmol/L (5-15); CALCIUM 8.4 mg/dL (8.5-10.1); CHLORIDE 103 mmol/L (98-107)
[2020-12-08 06:09] LABS: ALANINE AMINOTRANSFERASE 208 U/L (12-78); ALKALINE PHOSPHATASE 148 U/L (45-117); BILIRUBIN,TOTAL 1.3 mg/dL (0.2-1.0); CREATININE 1.09 mg/dL (0.7-1.3); TOTAL PROTEIN 6.5 g/dL (6.4-8.2)
[2020-12-08] MEDS: METOPROLOL TARTRATE 25 MG TAB PO SCH ×2 (08:05→18:11)
[2020-12-08] MEDS: FUROSEMIDE 40 MG/4 ML IV SCH ×2 (08:06→20:34)
[2020-12-08 08:22] VITALS: BP 124/79
[2020-12-08 12:29] VITALS: BP 117/84
[2020-12-08 13:08] VITALS: BP 116/78
[2020-12-08] MEDS ORDERED: CEFTRIAXONE PMX 2GM/50ML 50 ML IVPB SCH (14:00)
[2020-12-08] MEDS: ENOXAPARIN 40 MG/0.4 ML SQ SCH (14:00)
[2020-12-08 19:30] VITALS: BP 127/80
[2020-12-09 02:39] VITALS: BP 131/97
[2020-12-09] MEDS: FUROSEMIDE 40 MG/4 ML IV SCH (06:15)
[2020-12-09] MEDS: METOPROLOL TARTRATE 25 MG TAB PO SCH (06:15)
[2020-12-09 07:00] VITALS: BP 137/90
[2020-12-09] MEDS ORDERED: LISI5TAB7 PO (09:51)
[2020-12-09] MEDS ORDERED: FURO-93 PO (09:58)
== END 2020-12-09 10:41 | disposition home or self-care (01) | DRG 871 ==
LOC: ED 10:56 → EDIP 12:09 → SUATTDRO 12:24 → 4WST 13:19 → DCLOUNGE 12-09 10:35
PROVIDERS: ADMIT Hospitalist; ATTEND Family Medicine
DX: A41.9 Sepsis, unspecified organism (principal); J12.9 Viral pneumonia, unspecified; I50.43 Acute on chronic combined systolic (congestive) and diastolic (congestive) heart failure; J44.0 Chronic obstructive pulmonary disease with (acute) lower respiratory infection; F12.90 Cannabis use, unspecified, uncomplicated; F15.10 Other stimulant abuse, uncomplicated; I11.0 Hypertensive heart disease with heart failure; R74.8 Abnormal levels of other serum enzymes; I34.0 Nonrheumatic mitral (valve) insufficiency; Z91.19 Patient's noncompliance with other medical treatment and regimen
CPT/HCPCS: 36415; 71045; 80053; 80307; 83605; 83735; 83880; 84484; 85025; 87040; 93005; 96374; 96375; 99285; G0378; J0696; J1650; J1940

== ENCOUNTER 2020-12-14 15:01 | Emergency (ER) | payer MEDICAID ==
[~2020-12-14] VITALS: Ht 180.3 cm; Wt 80.0 kg
[~2020-12-14 15:01] MED LIST changes: +LISI5TAB7 PO
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
[2020-12-14 15:43] LABS: BASOPHILS % (AUTO) 1 % (0-1); EOSINOPHILS % (AUTO) 0 % (1-7); LYMPHOCYTES % (AUTO) 11 % (22-44); MEAN CORPUSCULAR HEMOGLOBIN 26.9 pg (27.5-34.5); MEAN CORPUSCULAR HGB CONC 32.1 g/dL (33.2-36.2); MEAN PLATELET VOLUME 8.4 fL (7.4-10.4); MONOCYTES % (AUTO) 5 % (2-9); NEUTROPHILS % (AUTO) 83 % (42-75); PLATELET COUNT 238 x10^3/uL (130-400); RED BLOOD COUNT 4.48 x10^6/uL (4.38-5.82); RED CELL DISTRIBUTION WIDTH 16.8 % (9.4-14.8)
[2020-12-14 15:50] LABS: MD NO
[2020-12-14 15:51] LABS: ALBUMIN 2.5 g/dL (3.4-5.0); ANION GAP 9 mmol/L (5-15); CALCIUM 7.5 mg/dL (8.5-10.1); CHLORIDE 105 mmol/L (98-107)
--- NOTE | 2020-12-14 16:35 | NUR ---
called for update, okay to update.
--- NOTE | 2020-12-14 16:37 | NUR ---
Sharri, , [facility]ath to update. .
--- NOTE | 2020-12-14 16:40 | NUR ---
Pt sleeping, VSS.
[2020-12-14 18:13] VITALS: BP 150/90
== END 2020-12-14 18:16 | disposition home or self-care (01) ==
LOC: ED 18:10
DX: E87.6 Hypokalemia (principal); R42 Dizziness and giddiness; R53.1 Weakness; R00.8 Other abnormalities of heart beat; R94.31 Abnormal electrocardiogram [ECG] [EKG]; I11.0 Hypertensive heart disease with heart failure; I50.9 Heart failure, unspecified; J44.9 Chronic obstructive pulmonary disease, unspecified
CPT/HCPCS: 36415; 80048; 82040; 85025; 93005; 99284

== ENCOUNTER 2020-12-30 01:18 | Inpatient (IN) | payer MEDICAID ==
[~2020-12-30] VITALS: Ht 182.9 cm; Wt 85.3 kg
--- NOTE | 2020-12-30 01:42 | NUR ---
PT TO ER WITH C/O SWOLLEN ABD AND LOWER EXTREMITES. PT STATES HAVING PROBLEMS WITH THIS IN THE PAST, BUT IS UNABLE TO EXPLAIN WHAT HIS DX WAS. PT STATES TODAY THE PAIN AND SWELLING HAS BECOME WORSE. PT TO ROOM, A&OX4, NON-LABORED BREATHING. DISTENDED ABD, SWOLLEN AND PAINFUL LE. VSS, WILL MONITOR.
[2020-12-30 02:12] LABS: RED BLOOD COUNT 5.06 x10^6/uL (4.38-5.82)
[2020-12-30 02:13] LABS: BASOPHILS % (AUTO) 1 % (0-1); EOSINOPHILS % (AUTO) 1 % (1-7); LYMPHOCYTES % (AUTO) 27 % (22-44); MEAN CORPUSCULAR HEMOGLOBIN 26.6 pg (27.5-34.5); MEAN CORPUSCULAR HGB CONC 32.4 g/dL (33.2-36.2); MEAN PLATELET VOLUME 8.6 fL (7.4-10.4); MONOCYTES % (AUTO) 7 % (2-9); NEUTROPHILS % (AUTO) 65 % (42-75); PLATELET COUNT 325 x10^3/uL (130-400); RED CELL DISTRIBUTION WIDTH 17.6 % (9.4-14.8)
[2020-12-30 02:14] LABS: MD NO
[2020-12-30 02:26] LABS: ALANINE AMINOTRANSFERASE 70 U/L (12-78); ALBUMIN 3.1 g/dL (3.4-5.0); ANION GAP 7 mmol/L (5-15); CALCIUM 8.1 mg/dL (8.5-10.1); CHLORIDE 106 mmol/L (98-107); CREATININE 1.05 mg/dL (0.7-1.3)
[2020-12-30 02:30] LABS: ALKALINE PHOSPHATASE 179 U/L (45-117); BILIRUBIN,TOTAL 0.9 mg/dL (0.2-1.0)
[2020-12-30 02:33] LABS: TROPONIN I 0.234 ng/mL (0.000-0.045)
[2020-12-30] MEDS ORDERED: ONDANSETRON 2MG/ML, 2ML ONE (02:36)
[2020-12-30] MEDS ORDERED: ASPIRIN 325 MG TABLET ONE (02:36)
[2020-12-30] MEDS ORDERED: FUROSEMIDE 40 MG/4 ML ONE (02:44)
[2020-12-30] MEDS ORDERED: MORPHINE SULFATE 4 MG/ML, 1ML ONE (02:45)
--- NOTE | 2020-12-30 02:50 | NUR ---
pt medicated per dec at this time. pt medicated for abd pain at this time per verbal order from dr. Fu.
[2020-12-30] MEDS ORDERED: FUROSEMIDE 40 MG/4 ML IV ONE (03:00)
[2020-12-30] MEDS ORDERED: ONDANSETRON 2MG/ML, 2ML IVPush ONE (03:00)
[2020-12-30] MEDS ORDERED: ASPIRIN 81 MG TABLET CHEW PO ONE (03:00)
[2020-12-30] MEDS ORDERED: MORPHINE SULFATE 4 MG/ML, 1ML IVPush ONE (03:30)
--- NOTE | 2020-12-30 03:30 | NUR ---
PT APPEARS MUCH MORE COMFORTABLE AT THIS TIME, RESTING, RESPONDS TO VERBAL STIMULI AND STATES HE FEELS BETTER. VSS REPORT CALLED TO [facility] AND PT READY FOR TRANSPORT.
[2020-12-30] MEDS ORDERED: ACETAMINOPHEN 325 MG TABLET PO PRN ×2 (04:00→08:00)
[2020-12-30] MEDS ORDERED: morphine SULFATE 10 MG/ML, 1ML IVPush PRN ×2 (04:00→10:00)
[2020-12-30] MEDS ORDERED: LABETALOL 5MG/ML, 20ML IVPush PRN (04:00)
[2020-12-30] MEDS ORDERED: ONDANSETRON 2MG/ML, 2ML IVPush PRN (04:00)
[2020-12-30 04:17] VITALS: BP 125/93
[2020-12-30] MEDS ORDERED: METOPROLOL TARTRATE 25 MG TAB PO SCH (06:00)
[2020-12-30 06:09] VITALS: BP 113/71
[2020-12-30] MEDS: ENOXAPARIN 40 MG/0.4 ML SQ SCH (06:10)
[2020-12-30 06:28] LABS: TROPONIN I 0.211 ng/mL (0.000-0.045)
[2020-12-30 07:08] VITALS: BP 122/88
[2020-12-30 07:56] LABS: MICROSCOPIC NOT IND
[2020-12-30] MEDS ORDERED: MAALOX/HYOSCYAMINE/LIDOCAINE 45 ML BTL PO ONE (08:00)
[2020-12-30] MEDS ORDERED: NITROGLYCERIN 0.4 MG BOTTLE (25 TABS) SL PRN (08:00)
[2020-12-30] MEDS: LISINOPRIL 5 MG TABLET PO SCH (08:02)
[2020-12-30] MEDS: FUROSEMIDE 40 MG/4 ML IV SCH ×2 (08:03→17:28)
[2020-12-30 08:08] LABS: AMPHETAMINE SCREEN, URINE Positive (Negative); BARBITURATE SCREEN, URINE Negative (Negative); BENZODIAZEPINE SCREEN, URINE Negative (Negative); CANNABINOID SCREEN, URINE Positive (Negative); COCAINE SCREEN, URINE Negative (Negative); METHADONE SCREEN, URINE Negative (Negative); OPIATE SCREEN, URINE Positive (Negative)
[2020-12-30] MEDS ORDERED: REGADENOSON 0.4 MG/5 ML SYRINGE ONE (08:51)
[2020-12-30 14:05] LABS: TROPONIN I 0.162 ng/mL (0.000-0.045)
[2020-12-30 15:24] VITALS: BP 124/84
[2020-12-30] MEDS ORDERED: TEMAZEPAM 15 MG CAPSULE PO PRN (20:30)
[2020-12-30 20:59] VITALS: BP 141/98
[2020-12-30] MEDS ORDERED: ATORVASTATIN 40 MG TABLET PO SCH (21:00)
[2020-12-30] MEDS ORDERED: CARVEDILOL 3.125 MG TABLET PO SCH (21:00)
[2020-12-31 00:11] VITALS: BP 105/74
[2020-12-31] MEDS: ENOXAPARIN 40 MG/0.4 ML SQ SCH (04:59)
[2020-12-31 05:14] LABS: BASOPHILS % (AUTO) 1 % (0-1); EOSINOPHILS % (AUTO) 1 % (1-7); LYMPHOCYTES % (AUTO) 29 % (22-44); MD NO; MEAN PLATELET VOLUME 8.5 fL (7.4-10.4); MONOCYTES % (AUTO) 6 % (2-9); NEUTROPHILS % (AUTO) 63 % (42-75); PLATELET COUNT 293 x10^3/uL (130-400); RED BLOOD COUNT 5.02 x10^6/uL (4.38-5.82); RED CELL DISTRIBUTION WIDTH 16.9 % (9.4-14.8)
[2020-12-31 05:24] LABS: ANION GAP 7 mmol/L (5-15); CALCIUM 8.5 mg/dL (8.5-10.1); CHLORIDE 101 mmol/L (98-107)
[2020-12-31 05:30] LABS: CREATININE 1.27 mg/dL (0.7-1.3)
[2020-12-31 05:31] LABS: CHOL/HDL RATIO 4.6; CHOLESTEROL, TOTAL 116 mg/dL (140-239); HDL CHOL % 22 % (26-37); HDL CHOLESTEROL (DIRECT) 25 mg/dL (40-60); LDL CHOLESTEROL,CALCULATED 65 mg/dL (54-169); LDL/HDL RATIO 2.6 (0.5-3.0); TRIGLYCERIDES 128 mg/dL (50-200); VLDL CHOLESTEROL 26 mg/dL (0-25)
[2020-12-31 07:31] VITALS: BP 121/87
[2020-12-31] MEDS: LISINOPRIL 5 MG TABLET PO SCH (08:22)
[2020-12-31] MEDS ORDERED: FUROSEMIDE 100 MG/10 ML IV ONE (10:30)
[2020-12-31] MEDS ORDERED: LISI5TAB7 PO (10:59)
[2020-12-31] MEDS ORDERED: CARV3.1212 PO (10:59)
[2020-12-31] MEDS ORDERED: FURO-93 PO (10:59)
== END 2020-12-31 12:20 | disposition home or self-care (01) | DRG 293 ==
LOC: ED 01:38 → EDIP 03:26 → 5SO 03:54 → DCLOUNGE 12-31 12:13
PROVIDERS: ADMIT Family Medicine; ATTEND Family Medicine
DX: I11.0 Hypertensive heart disease with heart failure (principal); I50.43 Acute on chronic combined systolic (congestive) and diastolic (congestive) heart failure; F15.10 Other stimulant abuse, uncomplicated; F17.210 Nicotine dependence, cigarettes, uncomplicated; Z63.8 Other specified problems related to primary support group; J44.9 Chronic obstructive pulmonary disease, unspecified; I27.20 Pulmonary hypertension, unspecified; I25.5 Ischemic cardiomyopathy; Z91.14 Patient's other noncompliance with medication regimen; Z79.899 Other long term (current) drug therapy
CPT/HCPCS: 36415; 71045; 78452; 80048; 80053; 80061; 80307; 80320; 81003; 83690; 83735; 83880; 84100; 84484; 85025; 93005; 93017; 96374; 96375; 99291; G0378; J1650; J1940; J2405; J2785; A9502; G0480; J2270

== ENCOUNTER → 2021-01-20 | Outpatient (CLI) | payer MEDICAID ==
[~2021-01-20] MED LIST changes: +CARV3.1212 PO; +REGADENOSON 0.4 MG/5 ML SYRINGE ONE
== END | disposition home or self-care (01) ==
LOC: CVU 07:08
PROVIDERS: ATTEND Internal Medicine Cardiovascular Disease
DX: I08.8 Other rheumatic multiple valve diseases (principal); E78.5 Hyperlipidemia, unspecified; I42.9 Cardiomyopathy, unspecified; I10 Essential (primary) hypertension; F17.200 Nicotine dependence, unspecified, uncomplicated; F15.90 Other stimulant use, unspecified, uncomplicated
CPT/HCPCS: 93306; J2785

== ENCOUNTER → 2021-03-19 | Outpatient (CLI) | payer MEDICAID ==
[~2021-03-19] MED LIST changes: -REGADENOSON 0.4 MG/5 ML SYRINGE ONE
== END | disposition home or self-care (01) ==
LOC: CFH 15:11
PROVIDERS: ATTEND Internal Medicine Cardiovascular Disease
DX: I08.8 Other rheumatic multiple valve diseases (principal); I42.9 Cardiomyopathy, unspecified; I10 Essential (primary) hypertension; E78.5 Hyperlipidemia, unspecified; F19.10 Other psychoactive substance abuse, uncomplicated; F17.200 Nicotine dependence, unspecified, uncomplicated
CPT/HCPCS: 93306

== ENCOUNTER 2021-06-16 15:15 | Outpatient (CLI) | payer MEDICAID | END 2021-06-16 23:59 | disposition home or self-care (01) | LOC: CFH 15:15 | PROVIDERS: ATTEND Registered Nurse | DX: I37.1 Nonrheumatic pulmonary valve insufficiency (principal); I50.21 Acute systolic (congestive) heart failure | CPT/HCPCS: 93306 ==